=== PATIENT | male | born 1965 | race Hispanic/Latino ===

== ENCOUNTER 2018-09-07 12:06 | Observation (INO) | payer OTHER ==
[~2018-09-07] VITALS: Ht 172.7 cm; Wt 92.6 kg
--- NOTE | 2018-09-07 12:15 | NUR ---
PT TO CT
[2018-09-07] MEDS ORDERED: SODIUM CHLORIDE 0.9% 1000ML 1,000 ML IV SCH (12:30)
[2018-09-07] MEDS ORDERED: DEXAMETHASONE SOD PHOS 10 MG/1 ML VIAL IV ONE (12:30)
[2018-09-07 12:34] LABS: BASOPHILS # (AUTO) 0.1 (0.0-0.1); BASOPHILS % 0.2 % (0.0-1.0); HEMATOCRIT 46.2 % (38.2-49.6); HEMOGLOBIN 16.1 g/dL (14.0-18.0); LYMPHOCYTES # (AUTO) 1.1 (1.0-3.2); LYMPHOCYTES % 5.6 % (18.0-39.1); MEAN CORPUSCULAR HEMOGLOBIN 30.7 pg (28-32); MEAN CORPUSCULAR HGB CONC 34.8 g/dL (31-35); MONOCYTES # (AUTO) 1.2 (0.2-0.8); MONOCYTES % 5.7 % (4.4-11.3); NEUTROPHILS # (AUTO) 18.1 (2.1-6.9); PLATELET COUNT 257 x10e3/uL (140-360); RED BLOOD COUNT 5.25 x10e6/uL (4.3-5.7); RED CELL DISTRIBUTION WIDTH 12.2 % (11.7-14.4)
[2018-09-07] MEDS ORDERED: CLINDAMYCIN PHOS 900MG/ 50ML 50 ML IV ONE (12:40)
[2018-09-07 12:48] LABS: ALANINE AMINOTRANSFERASE 35 IU/L (0-55); ALBUMIN 4.6 g/dL (3.5-5.0); ALBUMIN/GLOBULIN RATIO 1.5 (0.8-2.0); ALKALINE PHOSPHATASE 97 IU/L (40-150); ANION GAP 16.8 mmol/L (8-16); BLOOD UREA NITROGEN 13 mg/dL (7-26); BUN/CREATININE RATIO 13 (6-25); CALCIUM 9.4 mg/dL (8.4-10.2); CARBON DIOXIDE 22 mmol/L (22-29); CHLORIDE 102 mmol/L (98-107); CREATININE, SERUM 1.03 mg/dL (0.72-1.25); EST GLOMERULAR FILTRATION RATE > 60 ML/MIN (60-); GLUCOSE 130 mg/dL (74-118); POTASSIUM 3.8 mmol/L (3.5-5.1); SODIUM 137 mmol/L (136-145)
[2018-09-07] MEDS ORDERED: LORAZEPAM INJ 2 MG/ML VIAL IV ONE (13:45)
--- NOTE | 2018-09-07 14:30 | NUR ---
PT RETURNED FROM CT
[2018-09-07] MEDS: SODIUM CHLORIDE 0.9% 1000ML 1,000 ML IV SCH ×2 (14:47→20:49)
[2018-09-07] MEDS ORDERED: SODIUM CHLORIDE 0.9% 50ML 50 ML ONE (15:00)
[2018-09-07] MEDS ORDERED: IOPAMIDOL 370 MG/ML 200 ML INFUS..BTL INJ ONE (15:00)
--- NOTE | 2018-09-07 17:24 | Diagnostic Imaging Report ---
History: Throat pain Comparison studies: None Technique: Axial, coronal and sagittal images from the skull base to the thoracic inlet. Coronal and sagittal images reconstructed from the axial data. Intravenous contrast: 100 cc of Omnipaque 300. Dose modulation, iterative reconstruction, and/or weight based adjustment of the mA/kV was utilized to reduce the radiation dose to as low as reasonably achievable. Findings: Soft tissues: Enhancing soft tissue thickening at the left lateral mucosal pharyngeal space at the level of the epiglottis extending to the ipsilateral aryepiglottic fold, with obliteration of the ipsilateral piriform sinus. Obliteration of the left preepiglottic fat. Mild to moderate narrowing of the aerodigestive tract at this level Lymph nodes: Prominent left level 2 and 3 lymph nodes measuring up to 1.5 cm in lesser diameter. Vessels: Arteries and veins are patent. Glands (thyroid, parotid and submandibular): Normal in size and symmetric. No masses. Orbits: No abnormalities. Paranasal sinuses: Clear. Temporal bones: No abnormalities. Skull base and facial bones: Intact. Cervical spine: Uncinate process and facet hypertrophy results in mild multilevel foraminal narrowing at the mid cervical spine without significant canal stenosis IMPRESSION: 1. Enhancing soft tissue thickening at the left lateral mucosal pharyngeal space with involvement of the ipsilateral aryepiglottic fold and preepiglottic fat, this may represent a neoplastic or inflammatory process, recommend direct visualization. The above finding results in mild to moderate narrowing of the aerodigestive tract. 2. Prominent left level 2 and 3 lymph nodes, again could be reactive or secondary to infiltrative process, correlation recommended. Signed by: DR Dk Barboza M.D. on 09/07/2018 5:21 PM
--- NOTE | 2018-09-07 17:45 | NUR ---
DR. BOX IN TO TALK WITH PT ABOUT RESULTS OF ALL STUDIES. PENDING FURTHER ORDERS AT THIS TIME AND PT AWARE OF THIS. UPDATED PT'S PRIMARY NURSE RAYMOND CROWE OF THIS WELL.
[2018-09-07] MEDS ORDERED: CLINDAMYCIN PHOS 900MG/ 50ML 50 ML IV STA (18:28)
--- OUTSIDE RECORDS SUMMARY | 2018-09-07 18:57 | XMS REPORT ---
Author Author [facility] Address Unknown Phone Unavailable Care Team Providers Care Dietary Manager Name Role Phone Candy WOLF Unavailable Unavailable Problems This patient has no known problems. Allergies, Adverse Reactions, Alerts This patient has no known allergies or adverse reactions. Medications This patient has no known medications. Results Test Description Test Time Test Comments Text Results Atomic Results Result Comments CT SOFT TISSUE NECK W 2018-09-07 17:07:00 [place] [address] Patient Name: DEE KIM MR #: [id number] : 1965 Age/Sex: 53/M Req #: [id number] Adm Physician: Ordered by: MAXIM WOLF MD Report #: [id number] Location: ER Room/Bed: Procedure: [id number] CT/CT SOFT TISSUE NECK W Exam Date: 09/07/18 Exam Time: 1405 REPORT STATUS: Signed History: Throat pain Comparison studies: None Technique: Axial, coronal and sagittal images from the skull base to the thoracic inlet. Coronal and sagittal images reconstructed from the axial data. Intravenous contrast: 100 cc of Omnipaque 300. Dose modulation, iterative reconstruction, and/or weight based adjustment of the mA/kV was utilized to reduce the radiation dose to as low as reasonably achievable. Findings: Soft tissues: Enhancing soft tissue thickening at the left lateral mucosal pharyngeal space at the level of the epiglottis extending to the ipsilateral aryepiglottic fold, with obliteration of the ipsilateral piriform sinus. Obliteration of the left preepiglottic fat. Mild to moderate narrowing of the aerodigestive tract at this level Lymph nodes: Prominent left level 2 and 3 lymph nodes measuring up to 1.5 cm in lesser diameter. Vessels: Arteries and veins are patent. Glands (thyroid, parotid and submandibular): Normal in size and symmetric. No masses. Orbits: No abnormalities. Paranasal sinuses: Clear. Temporal bones: No abnormalities. Skull base and facial bones: Intact. Cervical spine: Uncinate process and facet hypertrophy results in mild multilevel foraminal narrowing at the mid cervical spine without significant canal stenosis IMPRESSION: 1. Enhancing soft tissue thickening at the left lateral mucosal pharyngeal space with involvement of the ipsilateral aryepiglottic fold and preepiglottic fat, this may represent a neoplastic or inflammatory process, recommend direct visualization. The above finding results in mild to moderate narrowing of the aerodigestive tract. 2. Prominent left level 2 and 3 lymph nodes, again could be reactive or secondary to infiltrative process, correlation recommended. Signed by: DR Dk Barboza M.D. on 09/07/2018 5:21 PM Dictated By: DK VAUGHN MD 20 Transcribed By: MENA on 09/07/181720 COPY TO: MAXIM WOLF MD
--- NOTE | 2018-09-07 19:23 | NUR ---
REPORT AND PATIENT CARE ENDORSED TO JOHNNA ANDRADE.
--- NOTE | 2018-09-07 19:43 | NUR ---
report given to jose villagran rn
[2018-09-07 19:58] VITALS: BP 119/77
--- NOTE | 2018-09-07 19:58 | NUR ---
Patient arrived to the unit via wheelchair from ED as new admit. Patient alert and oriented x3. Pt experiencing some aches on left side of throat. Pt on IVF (NS @ 100cc/hr) and scheduled IV antibiotics and IV Tylenol. Pt ambulatory in room prn. Call velazquez within reach.
[2018-09-07 20:00] VITALS: BP 119/77
[2018-09-07] MEDS: CEFTRIAXONE SOD 1 GM/NS 50 ML 50 ML IV SCH (20:49)
[2018-09-07 21:00] VITALS: BP 119/77
[2018-09-07] MEDS ORDERED: DEXAMETHASONE SOD PHOS 10 MG/1 ML VIAL IV SCH (21:00)
[2018-09-07] MEDS: ACETAMINOPHEN 1000 MG/100 ML IV SCH (23:00)
[2018-09-07] MEDS: DEXAMETHASONE SOD PHOS 10 MG/1 ML VIAL IV SCH (23:58)
[2018-09-08] VITALS (7 sets, daily range): BP systolic 107–149; BP diastolic 58–89
--- NOTE | 2018-09-08 00:16 | Consultation ---
DATE OF CONSULTATION: HOSPITAL CONSULTATION HISTORY OF PRESENT ILLNESS: I was kindly asked to see this 53-year-old man for evaluation of left-sided sore throat. Patient's soreness began the day of presentation. He reported a rapid onset of severe left-sided throat pain and difficulty swallowing as well as pain radiating to his left ear. Admission evaluation demonstrated a possible phlegmon versus neoplasm of the left parapharyngeal region, and his white count was elevated to 20,000. PAST MEDICAL HISTORY AND PAST SURGICAL HISTORY: Reviewed in detail in the chart. PHYSICAL EXAMINATION: The right tympanic membrane and external auditory canals were normal. The left tympanic membrane was immobile and there appeared to be fluid in the left middle ear space. Nasal examination was unremarkable. Oral cavity examination showed edema and erythema on the left anterior tonsillar pillar. There was no displacement of the uvula and no compromise of the oropharyngeal airway. He had left-sided palpable cervical adenopathy. ASSESSMENT: 1. Left peritonsillar phlegmon. 2. No clinical evidence of neoplasm, but will reevaluate as the pain and swelling reduces. PLAN: Admission with IV antibiotics as well as continued IV anti-inflammatory steroids. Thank you very much. Job#: [id number]
[2018-09-08 05:42] LABS: BASOPHILS # (AUTO) 0.1 (0.0-0.1); BASOPHILS % 0.2 % (0.0-1.0); EOSINOPHILS # (AUTO) 0.1 (0.0-0.4); EOSINOPHILS % 0.3 % (0.0-6.0); HEMATOCRIT 42.5 % (38.2-49.6); HEMOGLOBIN 14.7 g/dL (14.0-18.0); LYMPHOCYTES # (AUTO) 1.4 (1.0-3.2); LYMPHOCYTES % 5.5 % (18.0-39.1); MEAN CORPUSCULAR HEMOGLOBIN 30.3 pg (28-32); MEAN CORPUSCULAR HGB CONC 34.6 g/dL (31-35); MEAN CORPUSCULAR VOLUME 87.6 fL (81-99); MONOCYTES # (AUTO) 0.9 (0.2-0.8); MONOCYTES % 3.6 % (4.4-11.3); NEUTROPHILS # (AUTO) 22.8 (2.1-6.9); NEUTROPHILS % 89.5 % (38.7-80.0); PLATELET COUNT 237 x10e3/uL (140-360); RED BLOOD COUNT 4.85 x10e6/uL (4.3-5.7); RED CELL DISTRIBUTION WIDTH 12.5 % (11.7-14.4)
[2018-09-08] MEDS ORDERED: ONDANSETRON HCL INJ 2 MG/ML VIAL IV PRN (06:15)
[2018-09-08] MEDS ORDERED: HYDRALAZINE HCL 20 MG/ML VIAL IV PRN (06:15)
[2018-09-08 06:17] LABS: ALANINE AMINOTRANSFERASE 27 IU/L (0-55); ALBUMIN 3.7 g/dL (3.5-5.0); ALBUMIN/GLOBULIN RATIO 1.2 (0.8-2.0); ALKALINE PHOSPHATASE 71 IU/L (40-150); ANION GAP 14.5 mmol/L (8-16); BLOOD UREA NITROGEN 16 mg/dL (7-26); BUN/CREATININE RATIO 17 (6-25); CALCIUM 8.7 mg/dL (8.4-10.2); CARBON DIOXIDE 18 mmol/L (22-29); CHLORIDE 109 mmol/L (98-107); CREATININE, SERUM 0.94 mg/dL (0.72-1.25); EST GLOMERULAR FILTRATION RATE > 60 ML/MIN (60-); GLUCOSE 150 mg/dL (74-118); POTASSIUM 3.5 mmol/L (3.5-5.1); SODIUM 138 mmol/L (136-145)
[2018-09-08] MEDS: ACETAMINOPHEN 1000 MG/100 ML IV SCH ×2 (06:28→14:00)
[2018-09-08] MEDS: FAMOTIDINE 20 MG TAB PO SCH ×2 (09:40→17:12)
--- NOTE | 2018-09-08 09:40 | NUR ---
assessment complete no distress noted, updated on poc voiced understanding, denies pain at this time, slight edema noted to L neck, L ac 20g no ss of infiltration noted, no other co vocied call light in reach will continue to monitor
[2018-09-08] MEDS ORDERED: SODIUM CHLORIDE 0.9% 250ML 250 ML ONE (11:41)
[2018-09-08] MEDS: CLINDAMYCIN PHOS 900MG/ 50ML 50 ML IV SCH ×2 (12:00→18:00)
[2018-09-08] MEDS: DEXAMETHASONE SOD PHOS 10 MG/1 ML VIAL IV SCH (12:00)
--- NOTE | 2018-09-08 13:13 | NUR ---
CARBONE GIVEN WITH EXPLANATION. ORIGINAL COPY SIGNED AND PLACED IN CHART AND COPY OF ORIGINAL DOCUMENT GIVEN TO PATIENT AND PLACED IN CARE TRANSITION FOLDER AT BEDSIDE. PATIENT WITH NO FURTHER QUESTIONS. CM CONTACT INFO GIVEN TO PATIENT AT BEDSIDE.
--- NOTE | 2018-09-08 14:28 | NUR ---
CASE MANAGEMENT INITIAL ASSESSMENT Community Marketing Coordinator to bedside to discuss plan of care with patient/family. CM/SW role and care transitions discussed. Anticipated discharge plan discussed along with duration of care. CM discussed patients right to make decisions in care. CM/SW work hours given. Patient lives: PATIENT LIVES ALONE ON SECOND FLOOR AT [facility]. PATIENT STATES HE HAS FAMILY TO CHECK UP ON HIM IN THE [facility] Admit/Transfer: ED POA/Emergency contact: KATE KIM- [phone] Current/Previous Home Health: NONE PCP/Follow-up Care: DR. YEVGENIY WIGGINS Current/Previous DME: NONE; PATIENT INDEPENDENT Other Services: NONE Employment Status: EMPLOYED Areas of Concerns: NONE Referral Needs: NONE Education Needs: NONE AT THIS TIME IMM/CARBONE given and signed (if applicable): CARBONE Goal for discharge: RETURN HOME INDEPENDENT WITH NO NEEDS CM left business card at the bedside with contact information. Name and number was also written on the patients whiteboard. Patient verbalized understanding of discussion. CM will follow-up with ongoing discharge and transition of care needs.
--- NOTE | 2018-09-08 15:33 | NUR ---
Nutrition Screen Note RD Recommendation for Physician: -Continue regular diet as ordered Plan of Care: RD following, monitoring for tolerance and adequacy Nutrition reason for involvement: Nutrition Risk Trigger MST Primary Diagnose(s): Left peritonsillar phlegmon PMH: no H&P in chart Ht: 68in Wt: 203.25lb BMI: 30.9kg/m2 IBW: 154lb RD Assessment: (09/08/2018) Chart reviewed. Labs and meds reviewed. 53yo M, who is admitted for left-sided sore throat. Visited pt in the room. Pt reports good appetite with >50% PO intake. No GI complains noted. No recent weight loss reported. Pt complains of some swallowing difficulty due to sore throat. RD recommended mechanical soft diet, pt is agreeable with plan. No chewing difficulty noted. RD also provided 20mins of weight loss education per pt request. Will continue to monitor and follow. Current Diet: regular diet Malnutrition Evaluation (09/08/2018) The patient does not meet criteria for a specified degree of malnutrition at this time. Will re-evaluate at follow-up as appropriate. Diet Education Needs Assessment: Diet education not indicated. Nutrition Care Level: low Signed: Jess Dunbar, MS, RD, LD
[2018-09-08] MEDS: CEFTRIAXONE SOD 1 GM/NS 50 ML 50 ML IV SCH (18:30)
[2018-09-08] MEDS ORDERED: CLINDAMYCIN PHOS 900MG/ 50ML 50 ML IV SCH (18:40)
--- NOTE | 2018-09-08 19:15 | NUR ---
Patient visited in room during nursing rounds. Patient alert and oriented x3. Family at bedside visiting. Pt stated aches felt on left side of throat lessening in intensity. Pt on scheduled IV antibiotics and IV Tylenol. Pt ambulatory in room prn. Call velazquez within reach.
--- NOTE | 2018-09-08 20:00 | NUR ---
Patient eating ice cream with no difficulty or discomfort.
[2018-09-09] VITALS: BP 116/66
[2018-09-09] MEDS: DEXAMETHASONE SOD PHOS 10 MG/1 ML VIAL IV SCH ×2 (00:17→12:20)
[2018-09-09] MEDS: CLINDAMYCIN PHOS 900MG/ 50ML 50 ML IV SCH ×3 (00:17→12:20)
[2018-09-09 03:49] LABS: BASOPHILS % 0.1 % (0.0-1.0); HEMATOCRIT 42.6 % (38.2-49.6); HEMOGLOBIN 14.7 g/dL (14.0-18.0); LYMPHOCYTES # (AUTO) 1.4 (1.0-3.2); LYMPHOCYTES % 5.5 % (18.0-39.1); MEAN CORPUSCULAR HEMOGLOBIN 30.3 pg (28-32); MEAN CORPUSCULAR HGB CONC 34.5 g/dL (31-35); MEAN CORPUSCULAR VOLUME 87.8 fL (81-99); MONOCYTES % 4.1 % (4.4-11.3); NEUTROPHILS # (AUTO) 21.8 (2.1-6.9); NEUTROPHILS % 88.9 % (38.7-80.0); PLATELET COUNT 233 x10e3/uL (140-360); RED BLOOD COUNT 4.85 x10e6/uL (4.3-5.7); RED CELL DISTRIBUTION WIDTH 12.6 % (11.7-14.4)
[2018-09-09 04:00] VITALS: BP 109/69
[2018-09-09 04:04] LABS: ANION GAP 15.2 mmol/L (8-16); BLOOD UREA NITROGEN 21 mg/dL (7-26); BUN/CREATININE RATIO 22 (6-25); CALCIUM 8.8 mg/dL (8.4-10.2); CARBON DIOXIDE 18 mmol/L (22-29); CHLORIDE 112 mmol/L (98-107); CREATININE, SERUM 0.97 mg/dL (0.72-1.25); EST GLOMERULAR FILTRATION RATE > 60 ML/MIN (60-); GLUCOSE 156 mg/dL (74-118); MAGNESIUM 2.7 MG/DL (1.3-2.1); POTASSIUM 4.2 mmol/L (3.5-5.1); SODIUM 141 mmol/L (136-145)
[2018-09-09] MEDS: FAMOTIDINE 20 MG TAB PO SCH (06:45)
[2018-09-09 08:11] VITALS: BP 123/80
[2018-09-09 08:30] VITALS: BP 123/80
--- NOTE | 2018-09-09 08:30 | NUR ---
Pt received sitting up in bed, aa/o x3. Seen by MITCH Bowen, possible d/c home today. Assessment complete, vss. Throat swollen externally, reports continued throat soreness left internally. Continues iv abt, encouraged to increase fluids and ambulation.
[2018-09-09] MEDS ORDERED: MEDROL DOSPAK PO (08:33)
[2018-09-09] MEDS ORDERED: CEFTIN PO (08:33)
--- NOTE | 2018-09-09 10:20 | NUR ---
spoke with krystina lee d/c home and followup in office
--- NOTE | 2018-09-09 10:50 | NUR ---
discharge instructions reviewed with pt and , all questions answered. discussed followup appts, no new rx ordered. #20iv removed from right hand with tip intact, pressure dressing applied. Addendum: 09/09/18 at 1109 by Junior Nunez RN error wrong pt
[2018-09-09 12:03] VITALS: BP 124/80
--- NOTE | 2018-09-09 12:12 | NUR ---
Pt anxious about discharge, wanting to speak with Dr Brown prior to d/c. Notified MITCH Bowen. Called Dr Brown ofc, reported he will make rounds today.
[2018-09-09 16:25] VITALS: BP 122/76
--- NOTE | 2018-09-09 17:08 | NUR ---
discharge instructions reviewed with pt, all questions answered. discussed followup appt with dr billy, new rx education provided. #20iv removed from LAC with tip intact, pressure dressing applied.
--- NOTE | 2018-09-09 18:28 | NUR ---
PT LEFT FLOOR, ACCOMPANIED BY STAFF WITH ALL BELONGINGS
--- NOTE | 2018-09-09 18:28 | Discharge Summary ---
ADMISSION DIAGNOSES 1. Pharyngitis. 2. Obesity. DISCHARGE DIAGNOSES 1. Pharyngitis. 2. Obesity. MEDICAL HISTORY: None. SURGICAL HISTORY: Right knee surgery. FAMILY HISTORY: Patient's dad had a stroke. SOCIAL HISTORY: Patient admits to occasional alcohol use. He denies tobacco and illicit drug use. HOSPITAL COURSE: A 53-year-old male complains of sharp constant throat pain that began yesterday. Pain is worse with swallowing and not improved by anything at home. Once he got IV antibiotics and steroids in the ER, he noticed relief. He also complains of associated left ear pain, but denies trouble breathing, cough, congestion, and fever. On admission, patient had a CT of the neck that showed enhancing soft tissue thickening at the left lateral mucosal pharyngeal space with involvement of the ipsilateral area epiglottic fold and pre-epiglottic fat. This may represent a neoplastic or inflammatory process. Recommend direct visualization. Prominent left level 2 injury lymph nodes again could be reactive or secondary to infiltrative process. ENT was consulted who examined the neck and ears. Per ENT, there is no clinical evidence of neoplasm, but we will reevaluate as the pain and swelling reduces. Patient was started on IV antibiotics and steroids. Group A Strep screen was negative. Throat culture negative. Blood culture negative. Patient is feeling much better overnight after getting steroids and antibiotics. He will discharge home with a Medrol Dosepak and 5 more days of Ceftin. He will follow up with ENT in 1 week. Vital signs stable. Patient afebrile. Patient understands discharge instructions and agrees to plan. DICTATED BY ANUJA HEARD NP Job#: [id number] VEDA
== END 2018-09-09 18:28 | disposition home or self-care (01) ==
LOC: ER 12:06 → ERHOLD 18:53 → MED/SURG 19:58
PROVIDERS: ADMIT Internal Medicine; ATTEND Internal Medicine
DX: J36 Peritonsillar abscess (principal); Z82.3 Family history of stroke; E66.9 Obesity, unspecified; Z68.31 Body mass index [BMI] 31.0-31.9, adult; R59.0 Localized enlarged lymph nodes; E83.41 Hypermagnesemia
CPT/HCPCS: 36415 ×3; 70491; 80048; 80053 ×2; 83036; 83518; 83605; 83735; 85025 ×3; 87040; 87070; 93005; 96360 ×2; 99284; G0378 ×3; J0131 ×2; J0696 ×2; J1100 ×3; J2060; J7030; J7050; Q9967

== ENCOUNTER → 2018-10-06 | Outpatient (CLI) | payer SELFPAY ==
[~2018-10-06] MED LIST: CEFTIN PO; IOPAMIDOL 370 MG/ML 200 ML INFUS..BTL INJ ONE; MEDROL DOSPAK PO; SODIUM CHLORIDE 0.9% 50ML 50 ML ONE
--- NOTE | 2018-10-06 15:50 | Diagnostic Imaging Report ---
Examination:CT SOFT TISSUE NECK WITH CONTRAST History: Follow-up lesion in the oropharynx. Ongoing dysphagia. Comparison studies: Neck CT performed September 07, 2018. Technique: Axial images from the skull base to the thoracic inlet Coronal and sagittal reformatted images. Dose modulation, iterative reconstruction, and/or weight based adjustment of the mA/kV was utilized to reduce the radiation dose to as low as reasonably achievable. Intravenous contrast: 100mL of Isovue-370. Findings: Soft tissues: There is a 9 mm peripherally enhancing and centrally hypodense lesion in the left palatine tonsil. There is interval decrease in the amount of previously seen edema in the left pharyngeal mucosal space. The residual lesion could represent infectious or inflammatory process. Aerodigestive tract: No abnormality. Lymph nodes: There are unchanged bilateral IIa and left III prominent homogeneous nodes. No necrotic or calcified adenopathy. Vessels: Arteries and veins are patent. Thyroid gland: Normal in size and homogeneous. Submandibular glands: Normal in size and homogeneous. Parotid glands: Normal in size and homogeneous. Orbits: No abnormalities. Paranasal sinuses: Clear. Temporal bones: No abnormalities. Skull base and facial bones: Intact. Cervical spine: No disc bulge or herniation or foraminal or canal stenosis. Visualized lung apices: No abnormalities. IMPRESSION: Interval resolution of edema along the left lateral pharyngeal wall when compared to prior neck CT from September 07, 2018. Residual 9 mm peripherally enhancing residual lesion is limited to the left palatine tonsil and could represent infectious or inflammatory process. However, an underlying benign lesion cannot be excluded. Per Dr. Brown patient will have biopsy next week. Presumed reactive bilateral IIa and left III homogeneous nodes. No necrotic or calcified adenopathy. Signed by: Dr. Kelly Daniel M.D. on 10/06/2018 3:47 PM
== END ==
LOC: CT 10:41
PROVIDERS: ATTEND Otolaryngology
DX: D14.1 Benign neoplasm of larynx (principal); R13.10 Dysphagia, unspecified
CPT/HCPCS: 70491; Q9967

== ENCOUNTER → 2021-03-05 | Outpatient (CLI) | payer OTHER ==
[~2021-03-05] MED LIST changes: -IOPAMIDOL 370 MG/ML 200 ML INFUS..BTL INJ ONE; -SODIUM CHLORIDE 0.9% 50ML 50 ML ONE
== END ==
LOC: DX 07:34
PROVIDERS: ATTEND Internal Medicine Gastroenterology
DX: R10.10 Upper abdominal pain, unspecified (principal); R14.0 Abdominal distension (gaseous)
CPT/HCPCS: 74250; U0002

== ENCOUNTER → 2021-03-13 | Day surgery (SDC) | payer OTHER ==
[~2021-03-13] MED LIST changes: +FENTANYL CITRATE/PF 100MCG/2 ML INJ ONE; +LIDOCAINE HCL 2% LOCAL INJ 5 ML SDV VIAL INJ ONE; +MIDAZOLAM HCL 2 MG/2 ML VIAL ONE; +PROPOFOL IV EMULSION 10 MG/ML 20 ML VIAL ONE
[2021-03-13 15:12] LABS: BASOPHILS % 0.5 % (0.0-1.0); EOSINOPHILS # (AUTO) 0.1 (0.0-0.4); EOSINOPHILS % 0.9 % (0.0-6.0); HEMATOCRIT 43.3 % (38.2-49.6); HEMOGLOBIN 14.4 g/dL (14.0-18.0); LYMPHOCYTES # (AUTO) 2.4 (1.0-3.2); LYMPHOCYTES % 30.6 % (18.0-39.1); MEAN CORPUSCULAR HEMOGLOBIN 29.7 pg (28-32); MEAN CORPUSCULAR HGB CONC 33.3 g/dL (31-35); MEAN CORPUSCULAR VOLUME 89.3 fL (81-99); MONOCYTES # (AUTO) 0.6 (0.2-0.8); MONOCYTES % 7.8 % (4.4-11.3); NEUTROPHILS # (AUTO) 4.7 (2.1-6.9); NEUTROPHILS % 59.8 % (38.7-80.0); PLATELET COUNT 196 x10e3/uL (140-360); RED BLOOD COUNT 4.85 x10e6/uL (4.3-5.7); RED CELL DISTRIBUTION WIDTH 12.1 % (11.7-14.4)
[2021-03-13 15:22] LABS: PROTHROMBIN TIME 13.8 seconds (11.9-14.5)
[2021-03-13 15:31] LABS: ALBUMIN 3.7 g/dL (3.5-5.0); ALBUMIN/GLOBULIN RATIO 1.2 (0.8-2.0); ANION GAP 12.7 mmol/L (8-16); CALCIUM 8.6 mg/dL (8.4-10.2); CREATININE, SERUM 0.83 mg/dL (0.72-1.25); POTASSIUM 3.7 mmol/L (3.5-5.1)
[2021-03-13 16:05] VITALS: BP 131/85
== END | disposition home or self-care (01) ==
LOC: OR 12:13
PROVIDERS: ATTEND Internal Medicine Gastroenterology
DX: K29.60 Other gastritis without bleeding (principal); K52.9 Noninfective gastroenteritis and colitis, unspecified; K22.10 Ulcer of esophagus without bleeding; K44.9 Diaphragmatic hernia without obstruction or gangrene; I85.00 Esophageal varices without bleeding; K57.30 Diverticulosis of large intestine without perforation or abscess without bleeding; K62.89 Other specified diseases of anus and rectum; R19.5 Other fecal abnormalities; K64.8 Other hemorrhoids; R03.0 Elevated blood-pressure reading, without diagnosis of hypertension; M54.5 Low back pain; E66.9 Obesity, unspecified; Z01.810 Encounter for preprocedural cardiovascular examination; Z01.812 Encounter for preprocedural laboratory examination; Z20.822 Contact with and (suspected) exposure to COVID-19; Z68.34 Body mass index [BMI] 34.0-34.9, adult
CPT/HCPCS: 36415; 43239; 45380; 80053; 85025; 85610; 93005; C9113; J2001; J2250; J2704; J3010; U0002; 45378

== ENCOUNTER → 2021-03-18 | Outpatient (CLI) | payer OTHER ==
[~2021-03-18] MED LIST changes: -FENTANYL CITRATE/PF 100MCG/2 ML INJ ONE; -LIDOCAINE HCL 2% LOCAL INJ 5 ML SDV VIAL INJ ONE; -MIDAZOLAM HCL 2 MG/2 ML VIAL ONE; -PROPOFOL IV EMULSION 10 MG/ML 20 ML VIAL ONE
== END ==
LOC: US 11:33
PROVIDERS: ATTEND Internal Medicine Gastroenterology
DX: R10.10 Upper abdominal pain, unspecified (principal); R14.0 Abdominal distension (gaseous)
CPT/HCPCS: 76705

== ENCOUNTER 2021-08-19 19:26 | Emergency (ER) | payer SELFPAY ==
[~2021-08-19] VITALS: Ht 172.7 cm; Wt 92.5 kg
[2021-08-19] MEDS ORDERED: IBUPROFEN 600 MG TAB PO NR (19:33)
[2021-08-19] MEDS ORDERED: SOTROVIMAB 500 MG in SODIUM CHLORIDE 0.9% 100 ML IV ONE (19:45)
[2021-08-19] MEDS ORDERED: DEXAMETHASONE SOD PHOS 10 MG/1 ML VIAL ONE (19:55)
[2021-08-19] MEDS ORDERED: DEXAMETHASONE SOD PHOS 10 MG/1 ML VIAL IV ONE (20:00)
[2021-08-19] MEDS ORDERED: ACETAMINOPHEN 325 MG TAB PO ONE (20:45)
== END 2021-08-19 22:00 | disposition home or self-care (01) ==
LOC: ER 19:55
DX: U07.1 COVID-19 (principal); R50.9 Fever, unspecified; R06.02 Shortness of breath; R05.9 Cough, unspecified
CPT/HCPCS: 71045; 99284; J1100; J7050